=== PATIENT | female | born 1975 | race Caucasian/White ===

== ENCOUNTER 2018-05-09 17:28 | Emergency (ER) | payer OTHER ==
[2018-05-09 18:01] VITALS: RESP 18
[2018-05-09] MEDS ORDERED: HYDROmorphone 0.5 MG/0.5 ML SYRINGE IVP STA (18:15)
[2018-05-09] MEDS ORDERED: diphenhydrAMINE 50 MG/ML 1 ML VIAL IVP STA (18:15)
[2018-05-09] MEDS ORDERED: METOCLOPRAMIDE 5 MG/ML 2 ML VIAL IVP STA (18:15)
[2018-05-09] MEDS ORDERED: KETOROLAC 30 MG/ML 1 ML VIAL IVP STA (18:15)
[2018-05-09] MEDS ORDERED: SODIUM CHLORIDE 0.9% 1,000 ML IV STA (18:15)
--- NOTE | 2018-05-09 18:21 | ED ---
Headache HPI - General Chief Complaint: Headache Stated Complaint: migraine Time Seen by Provider: 05/09/18 18:03 Source: patient, RN notes reviewed Mode of arrival: ambulatory Limitations: no limitations - History of Present Illness Initial Comments: This is a 42-year-old female with history of migraine headaches who presents to the emergency department with chief complaint of migraine. Patient states that over the past 2 months she has had increasing worsening of headaches. She states that she saw her neurologist on and had Botox injections. She states that she is here on vacation from [place]. Patient reports a migraine headache that has been intermittent since Sunday. She states that on Sunday she received an injection of Toradol before beginning her trip here to [place]. She states that she has taken 3 doses of Relpax in the past one week. She states this is the maximum her neurologist suggested. Patient states she is also taking Fiorinal, ibuprofen, Benadryl with minimal relief of her symptoms. Denies fevers or chills, chest pain or shortness of breath, abdominal pain. Patient does admit to nausea but denies vomiting. States pain is made worse with lights and sounds. - Related Data Home Medications Medication Instructions Recorded Confirmed Albuterol Sulfate [Proair Hfa] 2 puff INHALATION RT-Q6H PRN 05/09/18 05/09/18 Butalb/Asprin/Caff 50-325-40Mg 1 cap PO Q4HR PRN 05/09/18 05/09/18 [Fiorinal 50-325-40 MG] DULoxetine HCL [Cymbalta] 60 mg PO DAILY 05/09/18 05/09/18 Diclofenac Sodium [Voltaren] 75 mg PO BID 05/09/18 05/09/18 Fluticasone/Salmeterol [Advair 1 puff INHALATION RT-BID 05/09/18 05/09/18 250-50 Diskus] Montelukast [Singulair] 10 mg PO DAILY 05/09/18 05/09/18 Ondansetron [Zofran ODT] 4 mg PO Q8HR PRN 05/09/18 05/09/18 Thyroid, Pork [[place] Thyroid] 30 mg PO DAILY 05/09/18 05/09/18 Zolpidem [Ambien] 10 mg PO HS PRN 05/09/18 05/09/18 Previous Rx's Medication Instructions Recorded Butalb/Asprin/Caff 50-325-40Mg 1 - 2 cap PO Q4HR #20 capsule 05/09/18 [Fiorinal 50-325-40 MG] Allergies Allergy/AdvReac Type Severity Reaction Status Date / Time clindamycin Allergy Itching Verified 05/09/18 18:49 ipratropium [From Atrovent] Allergy Unknown Verified 05/09/18 18:49 methylprednisolone Allergy Rapid Verified 05/09/18 18:49 [From Depo-Medrol] Heart Rate Sulfa (Sulfonamide Allergy Rash/Hives Verified 05/09/18 18:49 Antibiotics) gabapentin AdvReac Unknown Verified 05/09/18 18:49 topiramate [From Topamax] AdvReac Unknown Verified 05/09/18 18:49 Review of Systems ROS Statement: Those systems with pertinent positive or pertinent negative responses have been documented in the HPI. ROS Other: All systems not noted in ROS Statement are negative. Past Medical History Past Medical History: Asthma, GERD/Reflux Additional Past Medical History / Comment(s): migraines History of Any Multi-Drug Resistant Organisms: None Reported Past Surgical History: Hysterectomy Past Psychological History: Anxiety, Depression Smoking Status: Never smoker Past Alcohol Use History: None Reported Past Drug Use History: None Reported General Exam - General Exam Comments Initial Comments: General: Awake and alert, well-developed; in no apparent distress. HEENT: Head atraumatic, normocephalic. Pupils are equal, round and reactive to light. Extraocular movements intact. Oropharynx moist without erythema or exudate. Neck: Supple. Normal ROM. Cardiovascular: Regular rate and rhythm. No murmurs, rubs or gallops. Chest symmetrical. Respiratory: Lungs clear to auscultation bilaterally. No wheezes, rales or rhonchi. Normal respiratory effort with no use of accessory muscles. Musculoskeletal: Normal ROM, no tenderness bilateral upper and lower extremities. Ambulating normally. Skin: [place], warm and dry without rashes or lesions. Neurological: Alert and oriented x3. CN II-XII grossly intact. Speech is fluent and answers are appropriate. No focal neuro deficits. Psychiatric: Normal mood and affect. No overt signs of depression or anxiety noted. Limitations: no limitations Course Vital Signs 05/09/18 17:54 Temperature 97.9 F Pulse Rate 84 Respiratory 18 Rate Blood Pressure 129/83 O2 Sat by Pulse 97 Oximetry Medical Decision Making - Medical Decision Making This is a 42-year-old female with history of migraine headaches who presents to the emergency department with chief complaint of migraine. Patient reports having a migraine for the past 6 days. She reports that she takes multiple medications prescribed by her neurologist for these headaches. She has been following up with neurologist and he is aware that she is having increase in frequency. Patient reports to the emergency department requesting a headache cocktail to help relieve her symptoms. Denies sudden onset of headache. No focal neuro deficits. Vital signs are stable and patient is in no acute distress. She will be discharged home at this time. Patient does request a prescription for Fiorinal and will be provided with this for the next couple of days. She is in agreement with plan and voices understanding. All questions were answered. Disposition Clinical Impression: Migraine Disposition: HOME SELF-CARE Condition: Good Instructions: Migraine Headache (ED) Additional Instructions: Please take medications as prescribed. Please follow up with primary care provider within 1-2 days. Return to emergency department if symptoms should worsen or any concerns arise. Prescriptions: Butalb/Asprin/Caff 50-325-40Mg [Fiorinal 50-325-40 MG] 1 - 2 cap PO Q4HR #20 capsule Is patient prescribed a controlled substance at d/c from ED?: No Referrals: None,Stated [Primary Care Provider] - 1-2 days Time of Disposition: 19:42
[2018-05-09 19:57] VITALS: BP 145/63; PULSE 94; TEMP 97.3
== END 2018-05-09 19:55 | disposition home or self-care (01) ==
LOC: EC 17:28
DX: G43.909 Migraine, unspecified, not intractable, without status migrainosus (principal); J45.909 Unspecified asthma, uncomplicated; K21.9 Gastro-esophageal reflux disease without esophagitis; F32.9 Major depressive disorder, single episode, unspecified; F41.9 Anxiety disorder, unspecified; Z79.51 Long term (current) use of inhaled steroids; Z79.899 Other long term (current) drug therapy; Z88.1 Allergy status to other antibiotic agents; Z88.2 Allergy status to sulfonamides; Z88.8 Allergy status to other drugs, medicaments and biological substances
CPT/HCPCS: 99283; 96374; 96375 ×3; 96361; J1200; J2765; J1885; J1170